=== PATIENT | male | born 2005 | race Two or more races ===

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

== ENCOUNTER 2024-02-02 18:05 | Emergency (ER) | payer MEDICAID | END 2024-02-02 19:26 | disposition left against medical advice (07) | LOC: ER 18:05 | DX: T14.8XXA Other injury of unspecified body region, initial encounter (principal); Z53.21 Procedure and treatment not carried out due to patient leaving prior to being seen by health care provider; X58.XXXA Exposure to other specified factors, initial encounter; Y93.9 Activity, unspecified; Y92.9 Unspecified place or not applicable; Y99.9 Unspecified external cause status ==